=== PATIENT | female | born 1965 | race Caucasian/White ===

== ENCOUNTER → 2022-05-19 | Outpatient (RCR) | payer OTHER ==
[~2022-05-19] MED LIST: ADDERALL XR30 MG PO; ADDERALL20 MG PO; ALLEGRA 180MG180 MG PO; AMBIEN 10MG10 MG PO; AMBIEN 5MG TABLE5 MG PO; ANTIVERT 25MG25 MG PO; ATIVAN 0.50.5 MG/TAB; AUGMENTIN XR 101 TER PO; BUSPAR10 MG PO; CELEXA10 MG; CYMBALTA 60MG60 MG PO; DUO-KAPS1 CAP PO; LORTAB 5/500 501 TAB PO; MULTI VITAMINS1 TAB PO; MULTIPLE VITAMI1 CAP PO; NAPROSYN500 MG PO; PERCOCET; PHENERGAN W/CO120 M1 PO; PROZAC 10MG10 MG PO; TYLENOL EXTRA500 M1 PO; VITAMIN C500 MG PO; ZOLOFT; ZOLOFT 100MG100 MG PO; [UNRECOGNIZED DRUG - REMARK]
== END | disposition home or self-care (01) ==
LOC: WSPT
DX: M54.50 Low back pain, unspecified (principal)